=== PATIENT | male | born 1990 | race African-American/Black ===

== ENCOUNTER 2021-07-01 15:09 | Emergency (ER) | payer OTHER ==
[2021-07-01 15:24] VITALS: BP 145/79
[2021-07-01] MEDS ORDERED: PROPARACAINE 0.5% OPHTH DROPS 15 ML EACHEYE STA (16:24)
--- NOTE | 2021-07-01 16:48 | ED Physician Documentation ---
PD HPI OPHTHO - Stated complaint Stated Complaint: R EYE PX - Chief complaint Chief Complaint: Heent - History obtained from History obtained from: Patient - History of Present Illness Timing - onset: Today Timing - duration: Days (1) Timing - details: Abrupt onset Pain level max: 6 Pain level now: 5 Location: Right Associated symptoms: Redness, Tearing, FB sensation. No: Swelling Contributing factors: No: Wears glasses, Wears contacts Similar symptoms before: Has not had sx before Recently seen: Not recently seen - Additional information Additional information: 30-year-old male presents to the emergency department stating that his son accidentally poked him in the eye today. Has redness and tearing. No swelling. Has a foreign body sensation. Does not wear contacts. Does not wear glasses. Has not had similar symptoms previously. Review of Systems Constitutional: denies: Fever, Chills Respiratory: denies: Cough PD PAST MEDICAL HISTORY - Past Medical History Past Medical History: No - Past Surgical History Past Surgical History: No - Present Medications Home Medications: Ambulatory Orders Medication Instructions Recorded Confirmed Polymyxin B/Trimeth Ophth Drop 1 drops RIGHTEYE Q3H 7 Days #1 07/01/21 [Polytrim Ophth Drops] bottle - Allergies Allergies/Adverse Reactions: Allergies Allergy/AdvReac Type Severity Reaction Status Date / Time No Known Drug Allergies Allergy Verified 07/01/21 15:24 PD ED PE NORMAL - Vitals Vital signs reviewed: Yes - General General: Alert and oriented X 3, No acute distress - HEENT HEENT: Moist mucous membranes, Other (Right eye is normal. Left eye has conjunctival injection. On fluorescein stain he has a large corneal abrasion to the inferior portion of the cornea) - Neck Neck: Supple, no meningeal sign - Derm Derm: Warm and dry - Neuro Neuro: Alert and oriented X 3 Results - Vitals Vitals: Vital Signs - 24 hr 07/01/21 15:22 Temperature 36.4 C L Heart Rate 63 Respiratory 14 Rate Blood Pressure 145/79 H O2 Saturation 95 Oxygen O2 Source Room air PD MEDICAL DECISION MAKING - ED course Complexity details: considered differential, d/w patient ED course: Patient with a right eye corneal abrasion. We will place on Polytrim ophthalmic. Have him use artificial tears and gel tears at home. Does not use contacts. We will have him follow-up with his doctor for repeat evaluation. Patient counseled regarding signs and symptoms for which I believe and urgent re-evaluation would be necessary. Patient with good understanding of and agreement to plan and is comfortable going home at this time This document was made in part using voice recognition software. While efforts are made to proofread this document, sound alike and grammatical errors may occur. Departure - Departure Disposition: 01 Home, Self Care Clinical Impression: Corneal abrasion, right Qualifiers: Encounter type: initial encounter Qualified Code(s): S05.01XA - Injury of conjunctiva and corneal abrasion without foreign body, right eye, initial encounter Condition: Good Instructions: ED Eye Injury Corneal Abrasion Follow-Up: JOANNE ENRIQUEZ MD [Primary Care Provider] - Within 1 week Prescriptions: Polymyxin B/Trimeth Ophth Drop [Polytrim Ophth Drops] 1 drops RIGHTEYE Q3H 7 Days #1 bottle Comments: Your prescription was sent to [facility] in [place]. Use all medication as prescribed. You can also greens picker artificial tears and gel tears as these will help to soothe the eye. Cool compresses can help as well. This normally heals well within 2 to 3 days. Return if you worsen. Discharge Date/Time: 07/01/21 16:51
== END 2021-07-01 16:51 | disposition home or self-care (01) ==
LOC: ED 15:09
DX: S05.01XA Injury of conjunctiva and corneal abrasion without foreign body, right eye, initial encounter (principal); W50.0XXA Accidental hit or strike by another person, initial encounter
CPT/HCPCS: 99282; J3490